=== PATIENT | female | born 1970 | race Caucasian/White ===

== ENCOUNTER 2019-05-30 18:51 | Emergency (ER) | payer MEDICAID, OTHER ==
[~2019-05-30] VITALS: Ht 160 cm; Wt 68.0 kg
[~2019-05-30 18:51] MED LIST: ACET-685 PO; ESCI10TA10 PO
[2019-05-30 19:30] VITALS: BP 139/90
[2019-05-30 19:55] VITALS: BP 139/90
--- NOTE | 2019-05-30 19:55 | NUR ---
ARRIVAL PATIENT PRESENTS TO ER ROOM 8 WITH COMPLAINTS OF SINUS CONGESTION, SORE THROAT, HEADACHE AND BILATERAL "EYES WATERING" FOR THE PAST 5 DAYS. STATES SHE HAS BEEN TAKING OTC DAYQUIL AND SINUS MEDS. REPORTS HEADACHE PAIN 7/10 AT THIS TIME, PRESSURE. VSS. ASHWIN DO NOTIFIED.
[2019-05-30] MEDS ORDERED: PREDNISONE PO STA (20:26)
[2019-05-30] MEDS ORDERED: AMOXIL PO STA (20:26)
--- NOTE | 2019-05-30 20:32 | ER.PDOC ---
General Chief Complaint: Eye Problems Stated Complaint: CONGESTION, COUGH, FEVER Time seen by MD: 20:26 Source: patient, family Exam Limitations: no limitations History of Present Illness Initial Comments Pt c/o maxillary sinus congestion with fever and yellow/green purulent drainage for several days. She has a history of recurrent sinus infections. Timing/Duration: gradual Severity: moderate Associated Symptoms: fever/chills, runny nose, sinus pain/drainage, cough Prior symptoms/Treatment: Similar symptoms previous Allergies: Coded Allergies: No Known Allergies (Unverified , 09/11/15) Home Meds Reported Medications Escitalopram Oxalate (LEXAPRO) 10 Mg Tablet, 1 TAB PO HS, #90 TAB 3 Refills 08/15/15 Constitutional: chills, fever EENTM: nose congestion Respiratory: cough Cardiovascular: no symptoms reported Gastrointestinal: no symptoms reported Genitourinary: no symptoms reported Musculoskeletal: no symptoms reported Skin: no symptoms reported Psychiatric/Neurological: no symptoms reported Past Medical History Surgical History: tubal, other Physical Exam General Appearance: alert, no distress Eye: eyes nml inspection, lids & conjunct. nml, PERRL, pain on precuss of sinus (maxillary, bilaterally) Nose: mucosal edema Throat: pharynx nml, airway nml Respiratory: no resp.distress, breath sounds nml Abdomen: non-tender CVS: reg rate & rhythm, heart sounds nml Skin: color nml, no rash, warm/dry Extremities: non-tender NEURO/PSYCH: oriented x 3 Results/Orders Results/Orders Vital Signs Date Time Temp Pulse Resp B/P (MAP) Pulse Ox O2 Delivery O2 Flow Rate FiO2 05/30/19 19:30 98.2 88 18 100 Departure Time of Disposition: 20:30 Disposition: 01 HOME, SELF-CARE Impression: Primary Impression: Sinusitis, acute maxillary Condition: Stable Patient Instructions: Sinusitis Referrals: PCP,UNKNOWN (PCP) PRIMARY CARE PROVIDER Additional Instructions: Take antibiotics and steroids prescribed until all gone. OTC Chloraseptic spray for throat discomfort. Continue pseudofed as directed. Return to ER for any difficulty breathing or swallowing or any other emergent concerns. Duration or Time Spent with Pa: 10 min Problem Qualifiers Primary Impression: Sinusitis, acute maxillary Recurrence: recurrent Qualified Codes: J01.01 - Acute recurrent maxillary sinusitis GAVI CHRISTOPHER DO May 30, 2019 20:32
[2019-05-30 20:45] VITALS: BP 135/87
[2019-05-30] MEDS ORDERED: PREDNISONE ONE (20:45)
[2019-05-30] MEDS ORDERED: AMOXIL PO ONE (20:45)
== END 2019-05-30 20:58 | disposition home or self-care (01) ==
LOC: ER 18:51
DX: J01.01 Acute recurrent maxillary sinusitis (principal); Z79.899 Other long term (current) drug therapy
CPT/HCPCS: 99283; J7512

== ENCOUNTER → 2020-01-12 | Outpatient (CLI) | payer OTHER ==
--- NOTE | 2020-01-13 08:03 | DIREP ---
PROCEDURE:XRAY UGI TRACT W/O KUB COMPARISON:None. INDICATIONS:DYSPHAGIA R13.10 TECHNIQUE:The patient swallowed barium and effervescent material under fluoroscopic observation of the esophagus, stomach, and proximal small bowel. Multiple spot and overhead films were obtained. FINDINGS: ESOPHAGUS:Normal. No stricture or hiatal hernia. STOMACH:Normally distensible and free of filling defects. DUODENUM:Normal. No evidence of ulcer disease. OTHER:No aspiration identified. NUMBER OF IMAGES: Overhead images. Fifteen digital spot films CONCLUSION:Normal examination Dictated by: Jose Manuel Ledesma MD on 01/13/2020 at 08:00 AM
== END | disposition home or self-care (01) ==
LOC: RAD 12:36
PROVIDERS: ATTEND Surgery
DX: R13.10 Dysphagia, unspecified (principal)
CPT/HCPCS: 74246